=== PATIENT | female | born 1945 | race Caucasian/White ===

== ENCOUNTER 2020-08-18 14:00 | Emergency (ER) | payer MEDICARE ==
[~2020-08-18] VITALS: Ht 162.6 cm; Wt 54.5 kg
[2020-08-18 14:30] LABS: HEMATOCRIT 37.4 % (37.0-47.0); HEMOGLOBIN 11.9 g/dl (12.0-16.0); IMMATURE GRANULOCYTES 0.3 % (0.0-5.0); MEAN CELL VOLUME 90.3 fL CALC (80.0-100.0); MEAN CORPUSCULAR HGB 28.7 pG CALC (26.0-32.0); MEAN CORPUSCULAR HGB CONC 31.8 g/dL CAL (32.0-36.0); NEUT# 4.91 thou/uL (2.00-7.15); RED BLOOD COUNT 4.14 mill/uL (4.20-5.60); RED CELL DISTRI WIDTH 12.8 % (11.5-15.5)
[2020-08-18] MEDS ORDERED: AVAPRO75 MG PO (14:36)
[2020-08-18] MEDS ORDERED: METOPROL TAR25 MG PO (14:36)
[2020-08-18] MEDS ORDERED: PRILOSEC20 MG/CAP PO (14:37)
[2020-08-18] MEDS ORDERED: SPIRONOLACT50 MG PO (14:38)
[2020-08-18] MEDS ORDERED: LIVALO1 M1 PO (14:38)
[2020-08-18 14:46] LABS: ALBUMIN 4.5 g/dL (3.2-5.0); ALKALINE PHOSPHATASE 109 u/l (38-126); ANION GAP 12 (6-22 (CALC)); BILIRUBIN, TOTAL 0.6 mg/dL (0.0-1.4); BUN 14 mg/dL (8-23); BUN/CREATININE RATIO 14 (12-20 (CALC)); CARBON DIOXIDE 27 mmol/l (22-30); CHLORIDE 107 mmol/l (95-108); GFR 55 ML/MIN (>=60 (CALC)); GFR FOR AFR.AMER. > 60 ML/MIN (>=60 (CALC)); POTASSIUM 3.7 mmol/l (3.5-5.1); SGOT/AST 25 u/l (9-36); SODIUM 142 mmol/l (137-146); TOTAL PROTEIN 7.6 g/dL (6.3-8.2)
[2020-08-18 15:57] VITALS: BP 171/73
== END 2020-08-18 16:27 | disposition home or self-care (01) ==
LOC: ED 14:00
DX: I10 Essential (primary) hypertension (principal); K21.9 Gastro-esophageal reflux disease without esophagitis

== ENCOUNTER 2024-08-22 18:42 | Emergency (ER) | payer MEDICARE ==
[~2024-08-22] VITALS: Ht 162.6 cm; Wt 60.0 kg
[2024-08-22] VITALS (14 sets, daily range): BP systolic 123–212; BP diastolic 55–107
[~2024-08-22 18:42] MED LIST: AVAPRO75 MG PO; LIVALO1 M1 PO; METOPROL TAR25 MG PO; PRILOSEC20 MG/CAP PO; SPIRONOLACT50 MG PO
[2024-08-22] MEDS ORDERED: ASPIRIN 81 MG/TAB PO ONE (18:45)
[2024-08-22] MEDS ORDERED: NITROGLYCERIN 0.4 MG/TAB SL ONE (18:55)
[2024-08-22 19:09] LABS: BASO% 0.5 % (0-3); EOS% 3.6 % (0-8); HEMATOCRIT 39.4 % (37.0-47.0); HEMOGLOBIN 13.3 g/dl (12.0-16.0); IMMATURE GRANULOCYTES 0.1 % (0.0-5.0); LYMPH% 27.8 % (15-41); MEAN CELL VOLUME 91.4 fL CALC (80.0-100.0); MEAN CORPUSCULAR HGB 30.9 pG CALC (26.0-32.0); MEAN CORPUSCULAR HGB CONC 33.8 g/dL CAL (32.0-36.0); MONO% 7.4 % (2-13); NEUT# 4.82 thou/uL (2.00-7.15); NEUT% 60.6 % (42-76); RED BLOOD COUNT 4.31 mill/uL (4.20-5.60); RED CELL DISTRI WIDTH 12.1 % (11.5-15.5)
[2024-08-22 19:29] LABS: ALBUMIN 4.6 g/dL (3.2-5.0); ALKALINE PHOSPHATASE 69 u/l (38-126); ANION GAP 13 (6-22 (CALC)); BILIRUBIN, TOTAL 0.8 mg/dL (0.02-1.3); BUN 14 mg/dL (8-23); BUN/CREATININE RATIO 12 (12-20 (CALC)); CARBON DIOXIDE 28 mmol/l (22-30); CHLORIDE 103 mmol/l (95-108); CREATININE 1.1 mg/dL (0.5-1.0); ESTIMATED GFR 52 ML/MIN (>=90 (CALC)); POTASSIUM 3.5 mmol/l (3.5-5.1); SGOT/AST 34 u/l (9-36); SODIUM 140 mmol/l (137-146); TOTAL PROTEIN 7.4 g/dL (6.3-8.2)
[2024-08-22 20:23] LABS: ACT PARTIAL THROMBO TIME 26.5 SECONDS (20.0-32.5); D-DIMER 0.22 mg/L (0.19-0.60)
[2024-08-22 20:24] LABS: PROTHROMBIN TIME 10.3 SECONDS (9.0-12.5)
== END 2024-08-22 21:34 | disposition home or self-care (01) ==
LOC: ED 18:42
PROVIDERS: Emergency Medicine; Family Medicine
DX: R07.81 Pleurodynia (principal); I10 Essential (primary) hypertension; E78.5 Hyperlipidemia, unspecified; Z95.820 Peripheral vascular angioplasty status with implants and grafts